=== PATIENT | female | born 1955 | race Caucasian/White ===

== ENCOUNTER → 2016-10-31 | Outpatient (CLI) | payer OTHER ==
[~2016-10-31] VITALS: Ht 167.6 cm; Wt 70.8 kg
[~2016-10-31] MED LIST: ATOR1TAB21 PO; LIDOCAINE 2% INJ 100 MG/5 ML SDV (FOR ANES.) As Ordered ONE; LISI-538 PO; MAGN30TA2 PO; METO100T PO; NS 1,000 ML IV SCH; PROPOFOL 200 MG/20 ML VIAL As Ordered ONE; VITA200028 PO
--- NOTE | 2016-10-31 09:36 | ROOR ---
Patient Name: Christiana Mejia Procedure Date: 10/31/2016 9:19 AM Date of : 1955 Age: 61 Room: [facility] Gender: Female Note Status: Finalized Procedure: Colonoscopy to Cecum Indications: High risk colon cancer surveillance: Personal history of colonic polyps Providers: Tiago Dinero MD Referring MD: PAOLA MCNEIL MD Requesting Provider: Medicines: Monitored Anesthesia Care Complications: No immediate complications. Procedure: Pre-Anesthesia Assessment: - The heart rate, respiratory rate, oxygen saturations, blood pressure, adequacy of pulmonary ventilation, and response to care were monitored throughout the procedure. The Colonoscope was introduced through the anus and advanced to the cecum, identified by appendiceal orifice and ileocecal valve. The colonoscopy was performed without difficulty. The patient tolerated the procedure well. The quality of the bowel preparation was excellent. Findings: The perianal and digital rectal examinations were normal. Non-bleeding internal hemorrhoids were found during retroflexion. The hemorrhoids were small and Grade I (internal hemorrhoids that do not prolapse). Scattered small-mouthed diverticula were found in the recto-sigmoid colon, sigmoid colon and descending colon. The exam was otherwise without abnormality on direct and retroflexion views. Impression: - Non-bleeding internal hemorrhoids. - Diverticulosis in the recto-sigmoid colon, in the sigmoid colon and in the descending colon. - The examination was otherwise normal on direct and retroflexion views. - No specimens collected. - The exam was otherwise normal to the cecum. Recommendation: - Patient has a contact number available for emergencies. The signs and symptoms of potential delayed complications were discussed with the patient. Return to normal activities tomorrow. Written discharge instructions were provided to the patient. - High fiber diet. - Continue present medications. - Repeat colonoscopy in 5 years for surveillance. - Return to referring physician. - The findings and recommendations were discussed with the patient's family. Tiago Dinero MD Tiago Dinero MD 10/31/2016 9:35:50 AM This report has been signed electronically. Number of Addenda: 0 Note Initiated On: 10/31/2016 9:19 AM Estimated Blood Loss: Estimated blood loss: none.
[2016-10-31 09:55] VITALS: BP 96/71
== END ==
LOC: M OPP 08:27
PROVIDERS: ATTEND Internal Medicine Gastroenterology
DX: Z12.11 Encounter for screening for malignant neoplasm of colon (principal); Z86.010 Personal history of colon polyps; K64.0 First degree hemorrhoids; K57.30 Diverticulosis of large intestine without perforation or abscess without bleeding; I10 Essential (primary) hypertension; K50.90 Crohn's disease, unspecified, without complications; E78.5 Hyperlipidemia, unspecified; Z90.2 Acquired absence of lung [part of]; F17.200 Nicotine dependence, unspecified, uncomplicated; Z79.899 Other long term (current) drug therapy

== ENCOUNTER 2018-06-11 07:23 | Day surgery (SDC) | payer OTHER ==
[~2018-06-11 07:23] MED LIST changes: +ACETAMINOPHEN 325 MG TAB PO; -ATOR1TAB21 PO; -LIDOCAINE 2% INJ 100 MG/5 ML SDV (FOR ANES.) As Ordered ONE; -LISI-538 PO; -MAGN30TA2 PO; -METO100T PO; +MIDAZOLAM INJ 2 MG/2 ML VIAL (J2250) As Ordered; -NS 1,000 ML IV SCH; +PHENYLEPHRINE HCL 10 % OPHTH. SOL 5ML OS; -PROPOFOL 200 MG/20 ML VIAL As Ordered ONE; -VITA200028 PO
[2018-06-11] MEDS: OFLOXACIN 0.3 % (OCUFLOX) OPTH SOL 5ML OS (08:03)
[2018-06-11] MEDS: LIDOCAINE 3.5 % 1ML OPHTH TOPICAL GEL OU (08:04)
[2018-06-11] MEDS: CYCLOPENTOLATE 2% OPHTH SOLN 2ML BTL OS (08:04)
[2018-06-11] MEDS: TROPICAMIDE 1% OPHTH SOLN 2ML OS (08:04)
[2018-06-11] MEDS: PHENYLEPHRINE 2.5% OPHTH SOL 2ML OS (08:04)
[2018-06-11] MEDS ORDERED: fentaNYL 100 MCG/2 ML INJECTION (J3010) As Ordered (09:19)
[2018-06-11] MEDS: TRIAMCINOLONE PRES FR 40 MG/ML 1ML(TRIESENCE)(OR EYE ONLY)(J3300 PER 1MG) As Ordered (09:22)
[2018-06-11] MEDS: BSS with VANC/TOB/EPI for EYE CASES IR (09:22)
[2018-06-11] MEDS: MOXIFLOXACIN IN BSS 0.25MG/0.25ML INTRACAMERAL INJ (OR EYE ONLY)(J2280) As Ordered (09:22)
[2018-06-11] MEDS: HEALON DUET (HEALON 10MG/ML 0.55ML & HEALON ENDOCOAT 30MG/ML 0.85ML) As Ordered (09:22)
[2018-06-11] MEDS: LIDOCAINE 1% SDV 5 ML VIAL As Ordered (09:22)
[2018-06-11] MEDS: POVIDONE-IODINE 5% OPHTH PREP SOL 30ML As Ordered (09:22)
[2018-06-11] MEDS ORDERED: TRIMETHOBENZAMIDE 300 MG CAP PO (10:00)
[2018-06-11] MEDS: AcetaZOLAMIDE 500 MG ER CAP PO (10:20)
== END 2018-06-11 10:25 | disposition home or self-care (01) ==
LOC: M SDC 07:23
DX: H26.9 Unspecified cataract (principal); I10 Essential (primary) hypertension; J44.9 Chronic obstructive pulmonary disease, unspecified; E78.5 Hyperlipidemia, unspecified; F17.210 Nicotine dependence, cigarettes, uncomplicated; Z79.899 Other long term (current) drug therapy
CPT/HCPCS: 66984

== ENCOUNTER 2018-06-18 10:35 | Day surgery (SDC) | payer OTHER ==
[~2018-06-18 10:35] MED LIST changes: +BSS with VANC/TOB/EPI for EYE CASES IR; -MIDAZOLAM INJ 2 MG/2 ML VIAL (J2250) As Ordered; +PHENYLEPHRINE HCL 10 % OPHTH. SOL 5ML OD; -PHENYLEPHRINE HCL 10 % OPHTH. SOL 5ML OS
[2018-06-18] MEDS: CYCLOPENTOLATE 2% OPHTH SOLN 2ML BTL OD (11:28)
[2018-06-18] MEDS: LIDOCAINE 3.5 % 1ML OPHTH TOPICAL GEL OU (11:28)
[2018-06-18] MEDS: TROPICAMIDE 1% OPHTH SOLN 2ML OD (11:29)
[2018-06-18] MEDS: OFLOXACIN 0.3 % (OCUFLOX) OPTH SOL 5ML OD (11:29)
[2018-06-18] MEDS: PHENYLEPHRINE 2.5% OPHTH SOL 2ML OD (11:29)
[2018-06-18] MEDS: LIDOCAINE 1% SDV 5 ML VIAL As Ordered (12:48)
[2018-06-18] MEDS: POVIDONE-IODINE 5% OPHTH PREP SOL 30ML As Ordered (12:48)
[2018-06-18] MEDS: TRIAMCINOLONE PRES FR 40 MG/ML 1ML(TRIESENCE)(OR EYE ONLY)(J3300 PER 1MG) As Ordered (12:50)
[2018-06-18] MEDS: MOXIFLOXACIN IN BSS 0.25MG/0.25ML INTRACAMERAL INJ (OR EYE ONLY)(J2280) As Ordered (12:50)
[2018-06-18] MEDS ORDERED: MIDAZOLAM INJ 2 MG/2 ML VIAL (J2250) As Ordered (12:54)
[2018-06-18] MEDS ORDERED: fentaNYL 100 MCG/2 ML INJECTION (J3010) As Ordered (12:54)
[2018-06-18] MEDS: HEALON DUET (HEALON 10MG/ML 0.55ML & HEALON ENDOCOAT 30MG/ML 0.85ML) As Ordered (12:56)
[2018-06-18] MEDS ORDERED: AcetaZOLAMIDE 500 MG ER CAP As Ordered (13:12)
[2018-06-18] MEDS ORDERED: TRIMETHOBENZAMIDE 300 MG CAP PO (13:15)
[2018-06-18] MEDS: AcetaZOLAMIDE 500 MG ER CAP PO (13:15)
== END 2018-06-18 13:50 | disposition home or self-care (01) ==
LOC: M SDC 10:35
DX: H26.9 Unspecified cataract (principal); I10 Essential (primary) hypertension; E78.5 Hyperlipidemia, unspecified; J45.909 Unspecified asthma, uncomplicated; Z79.899 Other long term (current) drug therapy; F17.210 Nicotine dependence, cigarettes, uncomplicated
CPT/HCPCS: 66984

== ENCOUNTER 2018-08-17 08:23 | Emergency (ER) | payer OTHER ==
[2018-08-17] MEDS: KETOROLAC 30 MG/ML VIAL (J1885) IV (08:54)
[2018-08-17 09:04] LABS: BASO % 0.3 % (0.0-1.0); EOS # 0.3 10^3/uL (0.0-0.50); HEMATOCRIT 38.8 % (36.0-47.0); HEMOGLOBIN 12.9 g/dl (12.0-15.5); IMMATURE GRANULOCYTE % 0.7 % (0-3.0); LYMPH # 2.6 10^3/uL (1.5-4.5); LYMPH % 18.3 % (24.0-44.0); MEAN CORPUSCULAR HEMOGLOBIN 31.8 pg (27.0-33.0); MEAN CORPUSCULAR HGB CONC 33.2 g/dl (32.0-36.5); MEAN CORPUSCULAR VOLUME 95.6 fl (80.0-96.0); MONO # 1.1 10^3/uL (0.0-0.8); MONO % 7.9 % (0.0-5.0); NEUTROPHILS # 9.9 10^3/uL (1.8-7.7); NEUTROPHILS % 70.8 % (36.0-66.0); PLATELET COUNT, AUTOMATED 320 10^3/uL (150-450); RED BLOOD COUNT 4.06 10^6/uL (4.00-5.40); RED CELL DISTRIBUTION WIDTH 13.2 % (11.5-14.5)
[2018-08-17 09:08] LABS: KETONE, URINE AUTO RFX NEGATIVE (NEGATIVE); MUCUS, URINE RFX SMALL (NEGATIVE); NITRITE, URINE AUTO RFX NEGATIVE (NEGATIVE); RBC, URINE AUTO RFX 1 /HPF (0-3); SPECIFIC GRAVITY UR AUTO RFX 1.014 (1.002-1.035); SQUAM EPITHELIAL CELL UR AURFX 2 /HPF (0-6); WBC, URINE AUTO RFX 5 /HPF (0-3)
[2018-08-17 09:13] LABS: LEUKOCYTE ESTERASE UR AUTO RFX 1+ (NEGATIVE)
[2018-08-17 09:32] LABS: ALBUMIN 3.2 GM/DL (3.2-5.2); ALBUMIN/GLOBULIN RATIO 0.86 (1.00-1.93); ALKALINE PHOSPHATASE 104 U/L (45-117); ALT/SGPT 16 U/L (12-78); ANION GAP 8 MEQ/L (8-16); AST/SGOT 14 U/L (7-37); BILIRUBIN,DIRECT 0.1 MG/DL (0.0-0.2); BILIRUBIN,TOTAL 0.5 MG/DL (0.2-1.0); BLOOD UREA NITROGEN 22 MG/DL (7-18); CALCIUM LEVEL 8.7 MG/DL (8.8-10.2); CARBON DIOXIDE LEVEL 27 MEQ/L (21-32); CHLORIDE LEVEL 104 MEQ/L (98-107); CREATININE FOR GFR 1.11 MG/DL (0.55-1.30); GLUCOSE, FASTING 100 MG/DL (70-100); LIPASE 188 U/L (73-393); POTASSIUM SERUM 4.4 MEQ/L (3.5-5.1); SODIUM LEVEL 139 MEQ/L (136-145); TOTAL PROTEIN 6.9 GM/DL (6.4-8.2)
[2018-08-17] MEDS ORDERED: ISOVUE-370 76% 100ML VIAL (Q9967) As Ordered (09:46)
[2018-08-17] MEDS: cefTRIAXone SOD 1 GM in D5W MINI-BAG PLUS 50 ML IV (10:38)
== END 2018-08-17 11:19 | disposition home or self-care (01) ==
LOC: M ED 08:23
DX: K52.9 Noninfective gastroenteritis and colitis, unspecified (principal); I10 Essential (primary) hypertension; E78.5 Hyperlipidemia, unspecified; F17.210 Nicotine dependence, cigarettes, uncomplicated; Z79.899 Other long term (current) drug therapy; Z88.8 Allergy status to other drugs, medicaments and biological substances
CPT/HCPCS: Q9967

== ENCOUNTER 2018-08-18 07:46 | Inpatient (IN) | payer OTHER ==
[~2018-08-18] VITALS: Ht 167.6 cm; Wt 63.5 kg
[~2018-08-18 07:46] MED LIST changes: -ACETAMINOPHEN 325 MG TAB PO; +AMLO5TAB6 PO; +ATOR1TAB21 PO; +AUGM875T28 PO; -BSS with VANC/TOB/EPI for EYE CASES IR; +LISI-538 PO; +MAGN30TA2 PO; +MAGN64TASA PO; +METO100T5 PO; -PHENYLEPHRINE HCL 10 % OPHTH. SOL 5ML OD; +VITA200028 PO
[2018-08-18] MEDS ORDERED: NS 1,000 ML IV ONE (08:30)
[2018-08-18] MEDS ORDERED: MORPHINE 4 MG/ML 1ML VIAL/SYRINGE (J2270) IV ONE ×2 (08:45→13:45)
[2018-08-18 09:02] LABS: BASO # 0.1 10^3/uL (0.0-0.2); BASO % 0.4 % (0.0-1.0); EOS # 0.3 10^3/uL (0.0-0.50); EOS % 2.1 % (0.0-3.0); HEMATOCRIT 36.9 % (36.0-47.0); HEMOGLOBIN 12.4 g/dl (12.0-15.5); LYMPH # 1.8 10^3/uL (1.5-4.5); LYMPH % 12.4 % (24.0-44.0); MEAN CORPUSCULAR HEMOGLOBIN 31.6 pg (27.0-33.0); MEAN CORPUSCULAR HGB CONC 33.6 g/dl (32.0-36.5); MEAN CORPUSCULAR VOLUME 94.1 fl (80.0-96.0); MONO # 1.1 10^3/uL (0.0-0.8); MONO % 7.6 % (0.0-5.0); NEUTROPHILS # 10.9 10^3/uL (1.8-7.7); NEUTROPHILS % 76.9 % (36.0-66.0); PLATELET COUNT, AUTOMATED 309 10^3/uL (150-450); RED BLOOD COUNT 3.92 10^6/uL (4.00-5.40); WHITE BLOOD COUNT 14.2 10^3/uL (4.0-10.0)
[2018-08-18 09:12] LABS: ALBUMIN 3.2 GM/DL (3.2-5.2); BILIRUBIN,DIRECT 0.1 MG/DL (0.0-0.2); BILIRUBIN,TOTAL 0.5 MG/DL (0.2-1.0); CALCIUM LEVEL 9.4 MG/DL (8.8-10.2); CREATININE FOR GFR 1.1 MG/DL (0.55-1.30); GLOMERULAR FILTRATION RATE 53.6 (>45); POTASSIUM SERUM 4.4 MEQ/L (3.5-5.1); TOTAL PROTEIN 7.5 GM/DL (6.4-8.2)
[2018-08-18] MEDS ORDERED: NS 1,000 ML IV SCH (10:05)
[2018-08-18] MEDS ORDERED: PIPERACILLIN/TAZOBACTAM SOD 4.5 GM in D5W MINI-BAG PLUS 50 ML IV ONE (10:15)
[2018-08-18] MEDS: GASTROGRAFIN SOLUTION 30ML PO SCH ×2 (11:45→12:15)
[2018-08-18] MEDS ORDERED: METOCLOPRAMIDE INJ 10MG/2ML VIAL (J2765) IV PRN (14:15)
[2018-08-18] MEDS ORDERED: ONDANSETRON 4MG/2ML VIAL (J2405) IV PRN ×2 (14:15→21:45)
[2018-08-18] MEDS ORDERED: MORPHINE 4 MG/ML 1ML VIAL/SYRINGE (J2270) IV PRN (14:15)
--- NOTE | 2018-08-18 14:21 | REP ---
CT ABDOMEN AND PELVIS WITHOUT IV BUT WITH ORAL CONTRAST: HISTORY: Right lower quadrant pain. Rule out appendicitis. Comparison CT study is from the previous day done with IV contrast. CT FINDINGS: A phlegmonous reaction persists at the tip of the cecum with mural thickening, pericolonic edema. There is mural thickening in the anteriorly adjacent distal ileum as well. There is a small air collection with an adjacent calcification, consistent with a small appendiceal abscess centrally located in this phlegmonous process. The findings are quite similar to yesterday's CT study. There is diverticulosis of the cecum as well. There is no evidence of free intraperitoneal air or other abnormal fluid collection. There is extensive left colonic diverticulosis without CT evidence of diverticulitis. No other change from the previous day's CT study. IMPRESSION: Phlegmonous reaction persists in the right lower quadrant enveloping the tip of the cecum, the appendix, and in the adjacent terminal ileum. Acute appendicitis with abscess suspected. Diverticulitis of the cecum is a possibility as well. Small air collection adjacent to the tip of the cecum may represent a small abscess or air in the base of the inflamed appendix. No drainable abscess seen. No evidence of free air or other fluid collection. Electronically Signed by Ean Pizano MD 08/18/2018 08:07 P
[2018-08-18 15:30] VITALS: BP 117/74
[2018-08-18] MEDS: LR 1,000 ML IV SCH ×2 (15:43→23:50)
[2018-08-18] MEDS: PANTOPRAZOLE 40MG INJ (PROTONIX) (C9113) IV SCH (15:43)
[2018-08-18] MEDS: PIPERACILLIN/TAZOBACTAM SOD 3.375 GM in D5W MINI-BAG PLUS 50 ML IV SCH ×2 (16:45→23:49)
[2018-08-18] MEDS ORDERED: BUPIVACAINE HCL 0.25% 30 ML VIAL As Ordered ONE (17:16)
[2018-08-18] MEDS ORDERED: METOCLOPRAMIDE INJ 10MG/2ML VIAL (J2765) As Ordered ONE (17:29)
[2018-08-18] MEDS ORDERED: LIDOCAINE 2% INJ 100 MG/5 ML SDV (FOR ANES.) As Ordered ONE (17:29)
[2018-08-18] MEDS ORDERED: MIDAZOLAM INJ 2 MG/2 ML VIAL (J2250) As Ordered ONE (17:29)
[2018-08-18] MEDS ORDERED: PROPOFOL 200 MG/20 ML VIAL As Ordered ONE (17:29)
[2018-08-18] MEDS ORDERED: fentaNYL 100 MCG/2 ML INJECTION (J3010) As Ordered ONE ×4 (17:29→19:31)
[2018-08-18] MEDS ORDERED: ROCURONIUM BROMIDE 50 MG/5 ML VIAL As Ordered ONE ×2 (17:29→19:30)
[2018-08-18] MEDS ORDERED: PHENYLephrine HCL 500 MCG/5 ML (100MCG/ML) SYRINGE (J2370) As Ordered ONE (18:05)
[2018-08-18] MEDS ORDERED: ESMOLOL INJ 100MG/10ML VIAL As Ordered ONE (19:19)
[2018-08-18] MEDS ORDERED: SUGAMMADEX SODIUM 500 MG/5 ML VIAL (BRIDION) As Ordered ONE (19:34)
[2018-08-18] MEDS ORDERED: ONDANSETRON 4MG/2ML VIAL (J2405) As Ordered ONE ×2 (19:35→21:53)
[2018-08-18] MEDS ORDERED: HYDROmorphone HCL 2 MG/ML 1ML VIAL (J1170) As Ordered ONE (20:17)
[2018-08-18] MEDS ORDERED: MORPHINE 10 MG/ML 1ML VIAL (J2270) IV PRN (21:45)
[2018-08-18] MEDS ORDERED: fentaNYL 100 MCG/2 ML INJECTION (J3010) IV PRN (21:45)
[2018-08-18] MEDS ORDERED: LR 1,000 ML IV SCH (21:45)
[2018-08-18] MEDS ORDERED: KETOROLAC 30 MG/ML VIAL (J1885) As Ordered ONE (21:54)
[2018-08-18] MEDS: KETOROLAC 30 MG/ML VIAL (J1885) IV PRN (21:57)
[2018-08-18 23:00] VITALS: BP 119/59
[2018-08-18 23:30] VITALS: BP 125/84
[2018-08-19] VITALS (9 sets, daily range): BP systolic 108–140; BP diastolic 62–88
[2018-08-19] MEDS: KETOROLAC 30 MG/ML VIAL (J1885) IV PRN ×2 (04:15→12:32)
[2018-08-19] MEDS: PIPERACILLIN/TAZOBACTAM SOD 3.375 GM in D5W MINI-BAG PLUS 50 ML IV SCH ×4 (05:50→23:39)
[2018-08-19 07:28] LABS: BASO % 0.1 % (0.0-1.0); HEMATOCRIT 31.8 % (36.0-47.0); HEMOGLOBIN 10.7 g/dl (12.0-15.5); LYMPH # 0.6 10^3/uL (1.5-4.5); LYMPH % 4.1 % (24.0-44.0); MEAN CORPUSCULAR HEMOGLOBIN 31.6 pg (27.0-33.0); MEAN CORPUSCULAR HGB CONC 33.6 g/dl (32.0-36.5); MEAN CORPUSCULAR VOLUME 93.8 fl (80.0-96.0); MONO # 0.7 10^3/uL (0.0-0.8); MONO % 4.8 % (0.0-5.0); NEUTROPHILS # 12.8 10^3/uL (1.8-7.7); NEUTROPHILS % 90.7 % (36.0-66.0); PLATELET COUNT, AUTOMATED 281 10^3/uL (150-450); RED BLOOD COUNT 3.39 10^6/uL (4.00-5.40); WHITE BLOOD COUNT 14.1 10^3/uL (4.0-10.0)
[2018-08-19 07:51] LABS: CALCIUM LEVEL 8.5 MG/DL (8.8-10.2); CREATININE FOR GFR 1.03 MG/DL (0.55-1.30); GLOMERULAR FILTRATION RATE 57.8 (>45); POTASSIUM SERUM 4.1 MEQ/L (3.5-5.1)
[2018-08-19] MEDS: PANTOPRAZOLE 40MG INJ (PROTONIX) (C9113) IV SCH (08:04)
[2018-08-19] MEDS: MORPHINE 4 MG/ML 1ML VIAL/SYRINGE (J2270) IV PRN ×5 (10:54→21:35)
[2018-08-19] MEDS: LR 1,000 ML IV SCH (10:55)
[2018-08-19] MEDS ORDERED: ACETAMINOPHEN TAB 650MG DOSE (2X325MG) PO PRN (16:45)
[2018-08-19] MEDS: ATORVASTATIN 20 MG TAB PO SCH (17:26)
[2018-08-19] MEDS: NORCO, ANEXSIA 5/325MG TABLET (HYDROcodone/ACETAMINOPHEN) PO PRN (17:27)
[2018-08-19] MEDS: MAGNESIUM CHLORIDE 64 MG TABCR (SLO MAG) PO SCH (18:40)
[2018-08-19] MEDS: METOPROLOL TARTRATE 100 MG TAB PO SCH (21:36)
[2018-08-20] VITALS (7 sets, daily range): BP systolic 107–133; BP diastolic 65–78
[2018-08-20] MEDS: NORCO, ANEXSIA 5/325MG TABLET (HYDROcodone/ACETAMINOPHEN) PO PRN ×5 (02:06→21:30)
[2018-08-20] MEDS: PIPERACILLIN/TAZOBACTAM SOD 3.375 GM in D5W MINI-BAG PLUS 50 ML IV SCH ×4 (05:45→23:53)
[2018-08-20 06:58] LABS: BASO % 0.2 % (0.0-1.0); EOS % 0.4 % (0.0-3.0); HEMATOCRIT 27.8 % (36.0-47.0); HEMOGLOBIN 9.1 g/dl (12.0-15.5); LYMPH # 1.5 10^3/uL (1.5-4.5); LYMPH % 14.7 % (24.0-44.0); MEAN CORPUSCULAR HEMOGLOBIN 31.3 pg (27.0-33.0); MEAN CORPUSCULAR HGB CONC 32.7 g/dl (32.0-36.5); MEAN CORPUSCULAR VOLUME 95.5 fl (80.0-96.0); MONO # 0.6 10^3/uL (0.0-0.8); MONO % 5.6 % (0.0-5.0); NEUTROPHILS # 7.8 10^3/uL (1.8-7.7); NEUTROPHILS % 78.6 % (36.0-66.0); PLATELET COUNT, AUTOMATED 264 10^3/uL (150-450); RED BLOOD COUNT 2.91 10^6/uL (4.00-5.40); WHITE BLOOD COUNT 9.9 10^3/uL (4.0-10.0)
[2018-08-20] MEDS: ATORVASTATIN 20 MG TAB PO SCH (08:55)
[2018-08-20] MEDS: METOPROLOL TARTRATE 100 MG TAB PO SCH ×2 (08:55→21:29)
[2018-08-20] MEDS: MAGNESIUM CHLORIDE 64 MG TABCR (SLO MAG) PO SCH (08:55)
--- NOTE | 2018-08-20 13:48 | RO ---
DATE OF PROCEDURE: 08/18/2018 PREOPERATIVE DIAGNOSIS: Appendicitis with possible abscess. POSTOPERATIVE DIAGNOSIS: Acute appendicitis with abscess and extensive inflammation and scarring. PROCEDURE PERFORMED: 1. Laparoscopic appendectomy with portion of cecum. 2. Laparotomy with resection of terminal ileum and cecum with ileocolonic anastomosis. SURGEON: Dr. Diallo ANESTHESIA: General. INDICATIONS FOR THE PROCEDURE: Patient is a 63-year-old woman who reported about a week or so of having some intermittent crampy pain and feeling mildly unwell. On the morning of 08/17/2018, she felt some right lower quadrant pain and presented to the emergency department for evaluation. A CT scan showed what was described as some phlegmonous changes at the medial aspect and tip of the cecum, worrisome for appendicitis. She was started on oral antibiotics and discharged home but returned to the emergency department on 08/18/2018 complaining of persistent if not increased pain. A repeat CT scan after oral contrast confirmed a markedly inflamed mass of tissue around the cecum and anticipated area of the appendix. There was a suggestion of a possible abscess. She is now for laparoscopy and possible laparotomy for presumed appendicitis with possible abscess. OPERATIVE PROCEDURE: The patient was brought to the operating room and placed on the operating table in a supine position. Thromboembolic deterrent (GERALD) and sequential were utilized. The patient was placed under general endotracheal anesthesia. The abdomen was prepped and draped in a sterile fashion. 0.25% Marcaine was infiltrated ate each of the trocar sites as needed. The initial entry into the abdomen was in the left lower quadrant. 0.25% Marcaine was infiltrated and a short transverse incision was made. A Veress needle was inserted through the abdominal wall and after a positive hanging drop test the abdomen was insufflated with carbon dioxide gas. A 5 mm port was placed over 5 mm scope and this was advanced through the abdominal wall without difficulty. The laparoscope was inserted and initial examination showed some omentum adherent into the right lower quadrant near the pelvic brim. Visualized portions of the liver and gallbladder, stomach and small and large bowel appeared normal otherwise. There was no significant free fluid identified. A 12 mm trocar was placed just above the umbilicus along the midline. A second 5 mm trocar was placed in the left lower quadrant further inferiorly. Graspers were inserted. The omentum was placed on traction and some inflammatory attachments to the lateral abdominal wall were broken apart bluntly and the omentum was elevated to the upper abdomen. There appeared to be some marked inflammation in the area of the appendix and cecum. The terminal ileum coursed across and adjacent to this area just below the area of the cecum. Graspers were used to try to develop tissue planes. Some lateral attachments of the upper cecum and proximal ascending colon were divided using the Harmonic scalpel. Likewise, some attachments of the terminal ileum laterally were also divided. In the course of trying to develop a plane of tissue lateral to the terminal ileum an abscess was entered with release of some thick greenish pus. This was controlled using the suction jalousie installer and was not released widely into the abdomen. With further probing using the graspers and then the Harmonic scalpel to open up this area, a second abscess slightly more inferior was identified. These tissues were opened and some tissue planes identified. It was clear that the markedly inflamed appendix was coiled just inferior to the cecum. This area was markedly indurated and there was significant fusion between portions of the appendix and the cecum and the terminal ileum. The appendix was freed by some circumferential dissection and elevated. A plane was then developed following the wall of the terminal ileum working from inferiorly superiorly towards the cecum. In the course of dissection, a small opening was created in the lateral inferior aspect of the cecum. With further dissection primarily using the Harmonic scalpel, the area of the base of the appendix and the tip of the cecum were better identified. An additional grasper was needed for retraction and so a fourth 5 mL trocar was placed in the right upper quadrant. An [place] stapler 60 mm in length with a green load was then placed across the cecum and used to begin the division of the cecum freeing the appendix. The staple line was carried across the cecum to close the colotomy that had been created. This tissue was then all placed within an Endopouch. The right lower quadrant was irrigated. The pelvis was also irrigated and did not appear to have any significant contamination. A 19-Grenadian Igor drain was inserted and directed out through the left lower quadrant drain. This was passed across the pelvis and then up lateral to the terminal ileum and the area of the appendiceal abscess. The abdomen was then deflated and the trocars were removed. The incision in the supraumbilical area was extended and because of the mass of tissue within the specimen pouch it was necessary to extend this to perhaps 5-6 cm in order to be able to deliver the appendix. Once this had been delivered, the fascia was closed with interrupted simple sutures of #0 Vicryl. At this point, I took the time to open the specimen pouch and inspect the specimen. The staple line across the cecum was excised to open the cecum to identify more fully the tissue that had been resected. The specimen clearly included the origin of the appendix with the mass of the inflamed appendix attached. However, also noted within the specimen was the ileocecal valve, indicating that there must be a transection of the terminal ileum in the area adjacent to the cecum. At this point, the specimen was passed off as the appendix with a portion of cecum. In order to inspect the tissues and confirm intestinal continuity, a short midline incision was made. Initially the sutures were removed from the supraumbilical incision and this was then carried inferiorly around the right side of the umbilicus an additional several centimeters inferiorly along the midline. A Navi retractor was placed. Handheld retractors were placed as well. The lateral attachments of the ascending colon and the terminal ileum were then further divided and these structures were elevated into the wound. The right ureter was identified and was clearly intact. The remaining tissues of the terminal ileum and the inflammatory tissues adjacent to the remaining portions of the cecum still made identification of the structures difficult. I therefore transected the terminal ileum with a linear cutter 55 stapler back to healthy appearing tissue that was not indurated. This required resection of probably 6 cm of the terminal ileum. Likewise, the colon was transected approximately at the junction of the cecum and ascending colon with the linear cutter 55 stapler. These tissues were then excised dividing the mesentery with the Harmonic scalpel. This portion of tissue was sent as terminal ileum and cecum. A stapled anastomosis was then performed using a linear cutter 55 and a [id number]. Several reinforcing sutures of #3-0 Vicryl were placed. The mesenteric defect was closed with a running suture of #1-0 chromic. This appeared to give a good healthy anastomosis with removal of all of the adjacent indurated and inflamed tissues. The abdomen was then copiously irrigated with warm saline. The 19-Grenadian Igor drain was removed from the left lower quadrant and placed instead through the right upper quadrant trocar site. This was directed down the right paracolic gutter, across the area of her previous appendiceal abscess, down to the primary upper aspect of the pelvis. The irrigation was then removed from the abdomen as thoroughly as possible. The peritoneum in the lower portion of the midline wound was closed with a running #1 Vicryl. The fascia was then closed with interrupted simple sutures of #1 Vicryl. The drain was sutured to the skin with a #2-0 silk and the site was covered with a CHG OpSite dressing. The other incisions were all closed with skin alisa. Sterile dressings were applied. The patient tolerated the procedure well without apparent complication. She was awakened in the operating room, extubated and moved to the recovery room in stable condition. SHASHI
[2018-08-21] VITALS: BP 134/70
[2018-08-21 04:00] VITALS: BP 126/61
--- NOTE | 2018-08-21 04:41 | IPN ---
DATE: 08/19/2018 HISTORY OF PRESENT ILLNESS: The patient was admitted on August 18, 2018 with right lower quadrant pain and a CT scan consistent with appendicitis with possible abscess. At surgery she was found to have two abscesses and marked induration of the appendix and surrounding tissues. The appendix was removed with a portion of the cecum but the examination of the specimen suggested that there was interruption of continuity of the ileum so a ileocecal resection and anastomosis was performed with healthy tissue. She has initially done well after surgery. Vital signs show that she has remained afebrile since her surgery on the evening of August 18, 2018. Her pulse had gone up into the low 100s postoperatively but has come down into the 80s and 90s. Her blood pressure is good. Intake and output shows that on 08/18/2018 she had a total of 3000 in with a urine output recorded of 250 and 40 mL from her Igor drain. PHYSICAL EXAMINATION: Physical exam shows that the patient is awake and alert. She appears fairly comfortable. She is sitting up in bed. SKIN: Is warm and dry. HEART: Exam shows a regular rate and rhythm. ABDOMEN: The abdomen is flat and her dressing is dry. She does have a few bowel sounds auscultated. Her drain has a small amount of serosanguineous fluid in the tubing. LABORATORIES: Laboratory studies show a white count of 14 with a hemoglobin of 11, hematocrit of 32 and a platelet count of 281,000. Differential count shows 91% neutrophils and 4% lymphocytes. Chemistry profile shows normal electrolytes, BUN and creatinine and a glucose of 168. IMPRESSION: The patient is doing well now approximately 12 hours out from her surgical procedure. PLAN: The patient will be started on some clear liquids. She is encouraged to be up out of bed. We will monitor her drain for now and continue her piperacillin tazobactam for antibiotic coverage. SHASHI
--- NOTE | 2018-08-21 04:48 | IPN ---
DATE: 08/20/2018 HISTORY OF PRESENT ILLNESS: The patient is now postoperative day #2 from surgery for acute appendicitis with abscess and marked inflammation involving the cecum and terminal ileum. Ultimately she underwent resection of her terminal ileum and cecum with the inflamed appendiceal mass. She has done well and tolerated clear liquids quite well yesterday after they were started. She denies any nausea or vomiting and has had several bowel movements. She did have what appeared to be some blood in a bowel movement last night and again early this morning. Vital signs show that she has been afebrile over the past 24 hours. Her pulse is in the 70s and 80s. Blood pressure is good. Intake and output shows that yesterday she had 3400 in with 2200 of that being oral intake. Her urine output was 2700 with 100 mL of drainage from her Igor drain. PHYSICAL EXAMINATION: The patient is alert and appears quite comfortable sitting up in bed. She denies any nausea. HEART: Exam shows a regular rhythm. LUNGS: Lungs are clear. ABDOMEN: The abdomen shows active bowel sounds. Her dressing is dry and her drain shows a small amount of serosanguineous fluid. LABORATORY FINDINGS: The patient had a complete blood count (CBC) with a differential this morning showing a white count of 10, hemoglobin of 9 and a hematocrit of 28% with 264,000 platelets. Her differential count shows 79% neutrophils and 15% lymphocytes. IMPRESSION: The patient appears to be doing well now postoperative day #2 from her laparoscopy and laparotomy with resection of her markedly inflamed appendix with the terminal ileum and cecum. She has noted some blood in her stool and I did observe a sample which did show some significant blood but that was from much earlier in the day. She has not had any lightheadedness or dizziness. Her hematocrit is down a bit but her urine output remains brisk and her blood pressure and pulse have been fine. PLAN: We will keep an eye on her bowel movements and monitor for evidence of ongoing blood loss. I will repeat her laboratories tomorrow with a chemistry profile and a CBC with a differential. She was advanced to regular food today as she had tolerated the clear liquids so well. We will monitor her drain output until this is draining minimally and then remove it. She will remain on the piperacillin tazobactam for now. ADAMD
[2018-08-21] MEDS: PIPERACILLIN/TAZOBACTAM SOD 3.375 GM in D5W MINI-BAG PLUS 50 ML IV SCH ×4 (04:54→22:38)
[2018-08-21] MEDS: NORCO, ANEXSIA 5/325MG TABLET (HYDROcodone/ACETAMINOPHEN) PO PRN ×5 (04:55→23:30)
[2018-08-21 06:49] LABS: HEMATOCRIT 29.8 % (36.0-47.0); HEMOGLOBIN 9.8 g/dl (12.0-15.5); LYMPH % 18.8 % (24.0-44.0); MEAN CORPUSCULAR HEMOGLOBIN 31.6 pg (27.0-33.0); MEAN CORPUSCULAR HGB CONC 32.9 g/dl (32.0-36.5); MEAN CORPUSCULAR VOLUME 96.1 fl (80.0-96.0); PLATELET COUNT, AUTOMATED 321 10^3/uL (150-450); WHITE BLOOD COUNT 8.8 10^3/uL (4.0-10.0)
[2018-08-21 06:50] LABS: BASO % 0.2 % (0.0-1.0); EOS # 0.1 10^3/uL (0.0-0.50); EOS % 1.6 % (0.0-3.0); LYMPH # 1.7 10^3/uL (1.5-4.5); MONO # 0.5 10^3/uL (0.0-0.8); MONO % 5.1 % (0.0-5.0); NEUTROPHILS # 6.5 10^3/uL (1.8-7.7)
[2018-08-21 07:19] LABS: ALBUMIN 2.3 GM/DL (3.2-5.2); BILIRUBIN,TOTAL 0.3 MG/DL (0.2-1.0); CALCIUM LEVEL 8.8 MG/DL (8.8-10.2); CREATININE FOR GFR 1.11 MG/DL (0.55-1.30); POTASSIUM SERUM 3.4 MEQ/L (3.5-5.1); TOTAL PROTEIN 6.6 GM/DL (6.4-8.2)
[2018-08-21 08:00] VITALS: BP 141/86
[2018-08-21] MEDS: MAGNESIUM CHLORIDE 64 MG TABCR (SLO MAG) PO SCH (08:47)
[2018-08-21] MEDS: ATORVASTATIN 20 MG TAB PO SCH (08:47)
[2018-08-21] MEDS: METOPROLOL TARTRATE 100 MG TAB PO SCH ×2 (08:47→20:42)
[2018-08-21 12:00] VITALS: BP 118/73
[2018-08-21] MEDS: amLODIPine 5 MG TAB PO SCH (12:25)
[2018-08-21 16:00] VITALS: BP 115/66
--- NOTE | 2018-08-21 16:07 | IPN ---
DATE: 08/21/2018 HISTORY: The patient is now postoperative day #3 from her laparoscopic converted to open appendectomy and ileocecal resection for appendicitis with abscess and severe inflammation. She has done very well over the last day. She was having some bleeding with bowel movements yesterday, and this has stopped. She has little discomfort. Her drain remains in place. Vital signs show that she has been afebrile over the past 24 hours. Her pulse is in the 70s now with a blood pressure that is occasionally slightly elevated into the 140s. Intake and output: Yesterday she had 1130 recorded in with 3450 recorded out. Of that, 3000 was urine with 400 of stool in 53 mL in her drain. She had 40 mL in her drain this morning, and her urine output remains brisk. PHYSICAL EXAMINATION: The patient is alert and appears comfortable. Heart exam shows a regular rhythm. The abdomen is soft and with active bowel sounds. Her drain site is clean with a small amount of serous fluid in the bottle. Laboratory studies show a white count of 9, hemoglobin 10, hematocrit of 30, and a platelet count of 321,000. Her differential count shows 74% neutrophils, 19% lymphocytes, and 5 monocytes. Chemistry profile shows her potassium is slightly low at 3.4, her albumin is also slightly low at 2.3, and her other chemistry tests are normal. IMPRESSION: The patient is doing well now 3 days postoperative from her resection for appendicitis with abscess. PLAN: I will leave her drain in place one more day and continue her also on intravenous (IV) Zosyn one more day. If she is doing well in the morning we will remove her drain and send her home to continue some oral antibiotics. SHASHI
[2018-08-21 20:00] VITALS: BP 112/71
[2018-08-22 00:45] VITALS: BP 122/73
[2018-08-22 04:45] VITALS: BP 141/78
[2018-08-22] MEDS: PIPERACILLIN/TAZOBACTAM SOD 3.375 GM in D5W MINI-BAG PLUS 50 ML IV SCH ×2 (04:55→11:34)
[2018-08-22] MEDS: NORCO, ANEXSIA 5/325MG TABLET (HYDROcodone/ACETAMINOPHEN) PO PRN ×3 (04:55→13:30)
[2018-08-22 06:45] LABS: BASO % 0.4 % (0.0-1.0); EOS # 0.3 10^3/uL (0.0-0.50); EOS % 4.3 % (0.0-3.0); HEMOGLOBIN 9.7 g/dl (12.0-15.5); LYMPH # 1.7 10^3/uL (1.5-4.5); LYMPH % 23.2 % (24.0-44.0); MEAN CORPUSCULAR HEMOGLOBIN 31.9 pg (27.0-33.0); MEAN CORPUSCULAR HGB CONC 33.4 g/dl (32.0-36.5); MEAN CORPUSCULAR VOLUME 95.4 fl (80.0-96.0); MONO # 0.5 10^3/uL (0.0-0.8); MONO % 6.8 % (0.0-5.0); NEUTROPHILS # 4.9 10^3/uL (1.8-7.7); NEUTROPHILS % 64.8 % (36.0-66.0); PLATELET COUNT, AUTOMATED 328 10^3/uL (150-450); RED BLOOD COUNT 3.04 10^6/uL (4.00-5.40); WHITE BLOOD COUNT 7.5 10^3/uL (4.0-10.0)
[2018-08-22 07:30] VITALS: BP 96/73
[2018-08-22] MEDS: MAGNESIUM CHLORIDE 64 MG TABCR (SLO MAG) PO SCH (08:28)
[2018-08-22] MEDS: METOPROLOL TARTRATE 100 MG TAB PO SCH (08:28)
[2018-08-22] MEDS: ATORVASTATIN 20 MG TAB PO SCH (08:29)
[2018-08-22 08:31] VITALS: BP 96/73
[2018-08-22] MEDS: amLODIPine 5 MG TAB PO SCH (08:31)
[2018-08-22 12:00] VITALS: BP 132/76
[2018-08-22] MEDS ORDERED: NORCOTAB PO (14:35)
--- NOTE | 2018-08-23 12:02 | IPN ---
DATE: 08/23/2018 HISTORY: The patient is now 4 days postop from her laparoscopic converted to open appendectomy and ileocecal resection for appendicitis with abscess. The patient has done very well with her antibiotics. She is tolerating a regular diet and has an excellent urine output. She still has her drain in place. Vital signs show that she has been afebrile over the past 24 hours. Her pulse is in the 70s and 80s and her blood pressure is good. Intake and output shows that yesterday she had 2800 in with 3800 out. 60 mL was recorded from her drain yesterday and she had eight bowel movements recorded. PHYSICAL EXAMINATION: The patient is alert, oriented and appears quite comfortable. Heart exam shows a regular rate and rhythm and the lungs are clear. The abdomen is flat and soft. Her incisions are clean with alisa in place. Her drain site is clean and she has a minimal amount of primarily serous fluid in her drain bulb. Laboratory studies show white count of 8 with a hemoglobin of 10, hematocrit of 29% and a platelet count of 328,000. Differential count shows 65%, neutrophils, 23% lymphocytes and 7% monocytes. Chemistry profile was not repeated today. IMPRESSION: The patient is doing very well now 4 days postop from her ileocecal resection for appendicitis with abscess. PLAN: The patient will be discharged home today. I removed her drain, which she tolerated well and instructed her in care of the drain site. She can shower starting tomorrow. She can take a diet as tolerated. She was advised against any strenuous physical activity. She was instructed to followup in my office on 08/27/2018 at 9:30 in the morning. She is to resume taking the Augmentin 875/125 tablets that she had been prescribed the day before her admission. She is to take one twice a day for 5 days starting tonight. SHASHI
--- NOTE | 2018-09-06 08:41 | DSES ---
DATE OF ADMISSION: 08/18/2018 DATE OF DISCHARGE: 08/22/2018 ADMITTING DIAGNOSIS: Appendicitis with possible early abscess. HISTORY OF PRESENT ILLNESS: The patient is a 63-year-old woman who had been seen in the emergency department on August 17, 2018 with some right lower quadrant pain. She reported some cramping for about a week with some pain starting on the morning of August 12, 2018. A CT scan was done, which showed a phlegmon in the right lower quadrant and the possibility of appendicitis was raised. She was discharged home on antibiotics. She returned to the emergency department on the 18 of August complaining of worsening pain. A repeat CT scan with oral contrast showed inflammatory changes medial to the cecum in the area that would be expected to be the location of the appendix. She was felt to have appendicitis with a possible early abscess and was scheduled for laparoscopy with appendectomy. HOSPITAL COURSE: The patient was brought to the operating room where she underwent a laparoscopic appendectomy with resection of a portion of the cecum. There was an inflammatory mass arising from the appendix and involving a portion of the cecum and adjacent to the terminal ileum. After the initial resection, there appeared to be enough cecum removed that intestinal continuity may have been sacrificed so the procedure was modified with a laparotomy with resection of the remaining inflamed portions of the terminal ileum and cecum with an ileocolonic anastomosis. A drain was left in the operative area postop. She had been found to have an abscess in the area, Postop, she was continued on intravenous antibiotics. She had her diet advanced from clear liquids gradually to regular food. She did have some rectal bleeding early in her postop course felt to be related to her surgery and the anastomosis. This stopped by postoperative day #3. Her white blood cell count returned toward normal. She had little discomfort. With continued progress, she reached discharge on August 22, 2018. FINAL DIAGNOSES: 1. Acute appendicitis with abscess. 2. Hypertension. 3. Hypercholesterolemia. 4. Asthma. 5. Chronic obstructive pulmonary disease. PROCEDURE PERFORMED: Laparoscopic appendectomy with partial cecectomy and this was extended to a laparotomy with resection of the terminal ileum and cecum with ileocolonic anastomosis. DISPOSITION: The patient was discharged home on August 22, 2018. She was advised against any strenuous activity or lifting greater than 25 pounds. She could take a regular diet. She could shower as desired. She was to continue to treat her drain site daily until it had healed. She was provided a prescription for Melvin to take on an as-needed basis for pain. She was to continue the Augmentin that had been started at her prior emergency department visit. She was to follow up in the office on August 27, 2018 at 09:30.
== END 2018-08-22 15:30 | disposition home or self-care (01) | DRG 221 ==
LOC: M ED 07:46 → M SDC 14:01 → M PED 15:30 → M SDC 21:45 → M PED 21:46
PROVIDERS: ADMIT Surgery; ATTEND Surgery
PROC: 0DBB0ZZ Excision of Ileum, Open Approach (ICD-10-PCS; 2018-08-18)
PROC: 0DBH0ZZ Excision of Cecum, Open Approach (ICD-10-PCS; 2018-08-18)
PROC: 0DTJ4ZZ Resection of Appendix, Percutaneous Endoscopic Approach (ICD-10-PCS; principal; 2018-08-18 17:00)
DX: K35.33 Acute appendicitis with perforation, localized peritonitis, and gangrene, with abscess (principal)

== ENCOUNTER → 2019-03-20 | Outpatient (CLI) | payer OTHER ==
[~2019-03-20] MED LIST changes: +HYDR-3715 PO
--- NOTE | 2019-03-20 14:54 | REPMRS ---
Patient History The patient states she has not had a clinical breast exam in over a year. No known family history of cancer. No Hormone Replacement Therapy 3D TOMOSYNTHESIS WAS PERFORMED. [facility] lifetime risk for breast cancer is 5.6%. Digital Woman Screen Mammo: March 20, 2019 - Exam #: [id number] Bilateral CC and MLO view(s) were taken. Technologist: Mishel Vincent, Technologist Prior study comparison: August 16, 2010, bilateral digital mammo screening bilat performed at [facility]. FINDINGS: There are scattered fibroglandular densities. There has been no change in the appearance of the mammogram from the prior studies. There is a mild amount of residual fibroglandular tissue which is fairly symmetric. There is no interval development of dominant mass, architectural distortion, or clustered microcalcification suggestive of malignancy. Assessment: BI-RADS/ACR category 1 mammogram. Negative Mammogram. Recommendation Routine screening mammogram in 1 year (for women over age 40). This mammogram was interpreted with the aid of an FDA-approved computer-aided dectection system. Electronically Signed By: Earl Clemons MD 03/20/19 4439
== END ==
LOC: M WHC 13:24
PROVIDERS: ATTEND Physician Assistant Medical
DX: Z12.31 Encounter for screening mammogram for malignant neoplasm of breast (principal)

== ENCOUNTER → 2022-01-24 | Outpatient (CLI) | payer MEDICARE, OTHER ==
[~2022-01-24] MED LIST changes: +AMLO1TAB24 PO; -AMLO5TAB6 PO; -LISI-538 PO; +LISI20TA33 PO
== END ==
LOC: M WHC 09:00
PROVIDERS: ATTEND Physician Assistant
DX: Z01.89 Encounter for other specified special examinations (principal); Z12.31 Encounter for screening mammogram for malignant neoplasm of breast; M85.851 Other specified disorders of bone density and structure, right thigh; M85.852 Other specified disorders of bone density and structure, left thigh

== ENCOUNTER → 2022-03-28 | Outpatient (CLI) | payer OTHER ==
[~2022-03-28] MED LIST changes: +FOLI5INJ2 SC; +FOLTTAB9 PO; +HYDR12.55; +SOD1.479
== END ==
LOC: M LABSMTC 09:54
PROVIDERS: ATTEND Anesthesiology
DX: Z01.812 Encounter for preprocedural laboratory examination (principal); Z20.822 Contact with and (suspected) exposure to COVID-19

== ENCOUNTER 2022-04-02 07:50 | Day surgery (SDC) | payer OTHER ==
[~2022-04-02] VITALS: Ht 165.1 cm; Wt 60.2 kg
[~2022-04-02 07:50] MED LIST changes: +NS 1,000 ML IV ONE
[2022-04-02] MEDS ORDERED: LIDOCAINE 2% 100MG/5ML SDV (FOR ANES.) As Ordered ONE (09:30)
[2022-04-02] MEDS ORDERED: propofoL 200 MG/20 ML VIAL As Ordered ONE (09:30)
[2022-04-02 10:00] VITALS: BP 139/65
== END 2022-04-02 10:07 | disposition home or self-care (01) ==
LOC: M OPP 07:50
PROVIDERS: ATTEND Internal Medicine Gastroenterology
DX: Z12.11 Encounter for screening for malignant neoplasm of colon (principal); Z86.010 Personal history of colon polyps; K57.30 Diverticulosis of large intestine without perforation or abscess without bleeding; K64.0 First degree hemorrhoids; I10 Essential (primary) hypertension; E78.00 Pure hypercholesterolemia, unspecified; J45.909 Unspecified asthma, uncomplicated; Z90.2 Acquired absence of lung [part of]; Z79.02 Long term (current) use of antithrombotics/antiplatelets; Z79.899 Other long term (current) drug therapy; Z88.8 Allergy status to other drugs, medicaments and biological substances; F17.200 Nicotine dependence, unspecified, uncomplicated

== ENCOUNTER → 2023-01-10 | Outpatient (CLI) | payer MEDICARE, OTHER ==
[~2023-01-10] MED LIST changes: -NS 1,000 ML IV ONE
== END ==
LOC: M WHC 13:59
PROVIDERS: ATTEND Physician Assistant
DX: Z12.31 Encounter for screening mammogram for malignant neoplasm of breast (principal)

== ENCOUNTER 2024-11-01 07:37 | Inpatient (IN) | payer MEDICARE, OTHER ==
[~2024-11-01] VITALS: Ht 167.6 cm; Wt 73.8 kg
[~2024-11-01 07:37] MED LIST changes: -HYDR12.55; +HYDR12.55 PO
[2024-11-01 09:12] LABS: BASO % 0.2 % (0.0-1.0); EOS % 0.1 % (0.0-3.0); HEMATOCRIT 37.1 % (36.0-47.0); HEMOGLOBIN 13.1 g/dl (12.0-15.5); LYMPH # 1.1 10^3/uL (1.5-5.0); LYMPH % 9.6 % (24.0-44.0); MEAN CORPUSCULAR HGB CONC 35.3 g/dl (32.0-36.5); MEAN CORPUSCULAR VOLUME 93.5 fl (80.0-96.0); MONO # 0.4 10^3/uL (0.0-0.8); MONO % 3.4 % (2.0-8.0); NEUTROPHILS # 9.7 10^3/uL (1.5-8.5); NEUTROPHILS % 86.4 % (36.0-66.0); PLATELET COUNT, AUTOMATED 406 10^3/uL (150-450); RED BLOOD COUNT 3.97 10^6/uL (4.00-5.40); WHITE BLOOD COUNT 11.2 10^3/uL (4.0-10.0)
[2024-11-01] MEDS: NS 500 ML IV ONE (09:21)
[2024-11-01] MEDS: KETOROLAC 30 MG/ML 1ML VIAL IV ONE (09:21)
[2024-11-01 09:35] LABS: ALBUMIN 2.5 G/DL (3.2-5.2); BILIRUBIN,DIRECT 0.2 MG/DL (<0.4); BILIRUBIN,TOTAL 0.6 MG/DL (0.3-1.2); TOTAL PROTEIN 5.8 G/DL (5.7-8.2)
[2024-11-01] MEDS ORDERED: ISOVUE-370 76% 100ML VIAL As Ordered ONE (10:04)
[2024-11-01] MEDS: NS (Normal Saline) 0.9% 1,000 ML IV ONE ×2 (10:44→15:26)
[2024-11-01 11:47] LABS: CALCIUM LEVEL 8.5 MG/DL (8.3-10.6); CREATININE FOR GFR 1.24 MG/DL (0.55-1.30); GLOMERULAR FILTRATION RATE 45.8 (>45); POTASSIUM SERUM 2.8 MMOL/L (3.5-5.1)
[2024-11-01] MEDS: MORPHINE 4 MG/ML 1ML VIAL IV ONE (12:06)
[2024-11-01] MEDS: KCL 10MEQ/100ML SWI (KRUN) 10 MEQ in IV 1 EA IV ONE ×2 (12:16→22:30)
[2024-11-01] MEDS: PIPERACILLIN/TAZOBACTAM SOD 3.375 GM in DEXTROSE 5% (D5W) ADV/MINI-BAG 50 ML IV ONE (12:21)
[2024-11-01 12:25] LABS: MAGNESIUM LEVEL 1.6 MG/DL (1.8-2.4)
[2024-11-01] MEDS: POTASSIUM CHLORIDE 10MEQ SR TABLET PO ONE (13:30)
[2024-11-01] MEDS: MORPHINE 2 MG/ML 1ML VIAL IV PRN (14:27)
[2024-11-01] MEDS ORDERED: AMLO1TAB25 PO (15:03)
[2024-11-01] MEDS ORDERED: ERGO500029 PO (15:07)
[2024-11-01] MEDS ORDERED: FOLI1TAB11 PO (15:07)
[2024-11-01] MEDS ORDERED: MECL-86 PO (15:07)
[2024-11-01] MEDS ORDERED: B-12100020 PO (15:07)
[2024-11-01] MEDS ORDERED: HOME MED LIST COMPLETE! XX SCH (15:10)
[2024-11-01] MEDS: MAG SULF 1GM/100ML (MAG RUN) 1 GM in IV 1 EA IV SCH (16:36)
[2024-11-01] MEDS ORDERED: PIPERACILLIN/TAZOBACTAM SOD 3.375 GM in DEXTROSE 5% (D5W) ADV/MINI-BAG 50 ML IV SCH (18:00)
[2024-11-01] MEDS ORDERED: VANCOMYCIN HCL 1,000 MG, VIAL MATE ADAPTER 1 EACH in NS 250 ML IV SCH (19:50)
[2024-11-01] MEDS: VANCOMYCIN HCL 1,250 MG, VIAL MATE ADAPTER 1 EACH in NS 250 ML IV ONE (20:12)
[2024-11-01] MEDS: LR 1,000 ML IV ONE (20:15)
[2024-11-01] MEDS: METOPROLOL TARTRATE 100MG TAB PO SCH (20:16)
[2024-11-01 21:32] LABS: BASO % 0.2 % (0.0-1.0); EOS % 0.1 % (0.0-3.0); HEMATOCRIT 30.9 % (36.0-47.0); LYMPH # 1.4 10^3/uL (1.5-5.0); LYMPH % 8.9 % (24.0-44.0); MEAN CORPUSCULAR HEMOGLOBIN 32.7 pg (27.0-33.0); MEAN CORPUSCULAR VOLUME 96.3 fl (80.0-96.0); MONO # 0.3 10^3/uL (0.0-0.8); MONO % 1.7 % (2.0-8.0); NEUTROPHILS # 13.9 10^3/uL (1.5-8.5); NEUTROPHILS % 88.7 % (36.0-66.0); PLATELET COUNT, AUTOMATED 322 10^3/uL (150-450); RED BLOOD COUNT 3.21 10^6/uL (4.00-5.40); WHITE BLOOD COUNT 15.7 10^3/uL (4.0-10.0)
[2024-11-01 21:37] LABS: HEMOGLOBIN 10.5 g/dl (12.0-15.5)
[2024-11-01 21:55] LABS: CALCIUM LEVEL 7.3 MG/DL (8.3-10.6); CREATININE FOR GFR 1.14 MG/DL (0.55-1.30); GLOMERULAR FILTRATION RATE 50.5 (>45); MAGNESIUM LEVEL 2.3 MG/DL (1.8-2.4)
[2024-11-01] MEDS: PIPERACILLIN/TAZOBACTAM SOD 4.5 GM in DEXTROSE 5% (D5W) ADV/MINI-BAG 50 ML IV SCH (23:30)
[2024-11-01] MEDS: POTASSIUM CHLORIDE 10MEQ SR TABLET PO SCH (23:31)
[2024-11-01] MEDS: PERCOCET 5MG/325MG TAB PO PRN (23:41)
[2024-11-02] MEDS: RAMELTEON 8 MG TAB (ROZEREM) PO PRN (01:23)
[2024-11-02] MEDS: MORPHINE 2 MG/ML 1ML VIAL IV PRN (01:28)
[2024-11-02] MEDS: KCL 20MEQ in NS 1000ML 1,000 ML IV SCH (01:58)
[2024-11-02 02:33] LABS: CALCIUM LEVEL 7.2 MG/DL (8.3-10.6); CREATININE FOR GFR 1.09 MG/DL (0.55-1.30); GLOMERULAR FILTRATION RATE 53.1 (>45); POTASSIUM SERUM 3.5 MMOL/L (3.5-5.1)
[2024-11-02 08:44] LABS: HEMATOCRIT 29.9 % (36.0-47.0); MEAN CORPUSCULAR HEMOGLOBIN 32.8 pg (27.0-33.0); MEAN CORPUSCULAR HGB CONC 33.4 g/dl (32.0-36.5); PLATELET COUNT, AUTOMATED 293 10^3/uL (150-450); RED BLOOD COUNT 3.05 10^6/uL (4.00-5.40); WHITE BLOOD COUNT 13.6 10^3/uL (4.0-10.0)
[2024-11-02] MEDS: VANCOMYCIN HCL 750 MG, VIAL MATE ADAPTER 1 EACH in NS 250 ML IV SCH (08:55)
[2024-11-02] MEDS: ENOXAPARIN 40MG/0.4ML SYRINGE (J1650 PER 10MG) SC SCH (09:00)
[2024-11-02 09:16] LABS: CALCIUM LEVEL 7.4 MG/DL (8.3-10.6); CREATININE FOR GFR 1.12 MG/DL (0.55-1.30); GLOMERULAR FILTRATION RATE 51.5 (>45); POTASSIUM SERUM 4.1 MMOL/L (3.5-5.1)
[2024-11-02 10:50] LABS: ALBUMIN 1.9 G/DL (3.2-5.2); TOTAL PROTEIN 4.7 G/DL (5.7-8.2)
[2024-11-02] MEDS: NS (Normal Saline) 0.9% 1,000 ML IV SCH (11:46)
[2024-11-02 13:00] VITALS: BP 132/76; TEMP 97.5; O2SAT 96
[2024-11-02 14:24] LABS: CALCIUM LEVEL 7.6 MG/DL (8.3-10.6); CREATININE FOR GFR 1.07 MG/DL (0.55-1.30); GLOMERULAR FILTRATION RATE 54.3 (>45); POTASSIUM SERUM 4.4 MMOL/L (3.5-5.1)
[2024-11-02 16:00] VITALS: BP 131/69; TEMP 97.9; O2SAT 96
[2024-11-02] MEDS ORDERED: MECLIZINE 25 MG TABLET PO PRN (16:30)
[2024-11-02] MEDS: METOPROLOL TART 25 MG TABLET PO SCH (21:11)
[2024-11-02 22:27] VITALS: BP 130/80; TEMP 97.5; O2SAT 95
[2024-11-03 01:00] VITALS: BP 107/74; TEMP 97.5; O2SAT 100
[2024-11-03 04:54] VITALS: BP 115/68; TEMP 97.6; O2SAT 94
[2024-11-03 06:01] LABS: HEMATOCRIT 29.6 % (36.0-47.0); HEMOGLOBIN 9.9 g/dl (12.0-15.5); MEAN CORPUSCULAR HEMOGLOBIN 32.9 pg (27.0-33.0); MEAN CORPUSCULAR HGB CONC 33.4 g/dl (32.0-36.5); MEAN CORPUSCULAR VOLUME 98.3 fl (80.0-96.0); PLATELET COUNT, AUTOMATED 271 10^3/uL (150-450); RED BLOOD COUNT 3.01 10^6/uL (4.00-5.40); WHITE BLOOD COUNT 12.1 10^3/uL (4.0-10.0)
[2024-11-03 06:20] LABS: CALCIUM LEVEL 7.8 MG/DL (8.3-10.6); CREATININE FOR GFR 1.34 MG/DL (0.55-1.30); GLOMERULAR FILTRATION RATE 41.9 (>45); POTASSIUM SERUM 3.5 MMOL/L (3.5-5.1)
[2024-11-03 07:20] LABS: LYMPHOCYTES 12 % (16-44); NEUTROPHILS 88 % (28-66)
[2024-11-03 07:21] LABS: PLATELET ESTIMATE NORMAL (NORMAL)
[2024-11-03 08:39] VITALS: BP 114/76; TEMP 97.5; O2SAT 94
[2024-11-03] MEDS: FOLIC ACID 1MG TAB PO SCH (09:57)
[2024-11-03 12:21] LABS: PROCALCITONIN 6.95 ng/ml
[2024-11-03 12:48] VITALS: BP 115/70; TEMP 97; O2SAT 95
[2024-11-03 13:03] LABS: CALCIUM LEVEL 7.9 MG/DL (8.3-10.6); CREATININE FOR GFR 1.36 MG/DL (0.55-1.30); GLOMERULAR FILTRATION RATE 41.2 (>45); POTASSIUM SERUM 3.6 MMOL/L (3.5-5.1)
[2024-11-03 14:48] LABS: KETONE, URINE AUTO RFX NEGATIVE (NEGATIVE); MUCUS, URINE RFX SMALL (NEGATIVE); NITRITE, URINE AUTO RFX NEGATIVE (NEGATIVE); RBC, URINE AUTO RFX 13 /HPF (0-3); SQUAM EPITHELIAL CELL UR AURFX 5 /HPF (0-6)
[2024-11-03 14:49] LABS: LEUKOCYTE ESTERASE UR AUTO RFX 1+ (NEGATIVE); WBC, URINE AUTO RFX 19 /HPF (0-3)
[2024-11-03 17:32] VITALS: BP 115/69; TEMP 97.7; O2SAT 96
[2024-11-03] MEDS: SODIUM BICARBONATE 325 MG TAB PO SCH (18:09)
[2024-11-03] MEDS: TAZOBACTAM SOD IV SCH (18:09)
[2024-11-03] MEDS: MINI IV SCH (18:09)
[2024-11-03] MEDS: PIPERACILLIN IV SCH (18:09)
[2024-11-03] MEDS: DEXTROSE 5% IV SCH (18:09)
[2024-11-03 20:24] VITALS: BP 131/75; TEMP 97.3; O2SAT 92
[2024-11-03] MEDS: ACETAMINOPHEN 325 MG TAB PO PRN (20:30)
[2024-11-04] MEDS: ONDANSETRON 4MG 2ML VIAL IV PRN (02:51)
[2024-11-04 03:42] VITALS: BP 119/79; TEMP 97.3; O2SAT 92
[2024-11-04 08:00] VITALS: BP 124/74; TEMP 97.5; O2SAT 89
[2024-11-04 08:23] LABS: BASO % 0.1 % (0.0-1.0); EOS % 0.1 % (0.0-3.0); HEMATOCRIT 32.9 % (36.0-47.0); LYMPH # 1.2 10^3/uL (1.5-5.0); LYMPH % 7.7 % (24.0-44.0); MEAN CORPUSCULAR HEMOGLOBIN 32.7 pg (27.0-33.0); MEAN CORPUSCULAR HGB CONC 33.4 g/dl (32.0-36.5); MEAN CORPUSCULAR VOLUME 97.9 fl (80.0-96.0); MONO # 0.6 10^3/uL (0.0-0.8); MONO % 3.8 % (2.0-8.0); NEUTROPHILS # 13.7 10^3/uL (1.5-8.5); NEUTROPHILS % 87.3 % (36.0-66.0); PLATELET COUNT, AUTOMATED 334 10^3/uL (150-450); RED BLOOD COUNT 3.36 10^6/uL (4.00-5.40); WHITE BLOOD COUNT 15.7 10^3/uL (4.0-10.0)
[2024-11-04 08:59] LABS: PROCALCITONIN 10.18 ng/ml
[2024-11-04 09:01] LABS: ALBUMIN 1.9 G/DL (3.2-5.2); BILIRUBIN,TOTAL 1.3 MG/DL (0.3-1.2); CALCIUM LEVEL 8.4 MG/DL (8.3-10.6); CREATININE FOR GFR 1.43 MG/DL (0.55-1.30); GLOMERULAR FILTRATION RATE 38.8 (>45); MAGNESIUM LEVEL 1.9 MG/DL (1.8-2.4); POTASSIUM SERUM 3.2 MMOL/L (3.5-5.1); TOTAL PROTEIN 5.5 G/DL (5.7-8.2)
[2024-11-04] MEDS: KCL 20MEQ in NS 1000ML 1,000 ML IV SCH (11:37)
[2024-11-04] MEDS: KCL 10MEQ/100ML SWI (KRUN) 10 MEQ in IV 1 EA IV SCH (11:37)
[2024-11-04 12:00] VITALS: TEMP 97.5; O2SAT 93
[2024-11-04] MEDS: CHLORASEPTIC SPRAY MT PRN (16:13)
[2024-11-04] MEDS ORDERED: KCL 10MEQ/100ML SWI (KRUN) 10 MEQ in IV 1 EA IV SCH (16:30)
[2024-11-04 19:16] LABS: CALCIUM LEVEL 8.1 MG/DL (8.3-10.6); CREATININE FOR GFR 1.46 MG/DL (0.55-1.30); GLOMERULAR FILTRATION RATE 37.9 (>45); POTASSIUM SERUM 3.7 MMOL/L (3.5-5.1)
[2024-11-04 19:36] VITALS: BP 124/79; TEMP 97.7; O2SAT 92
[2024-11-04] MEDS: PIPERACILLIN/TAZOBACTAM SOD 4.5 GM in DEXTROSE 5% (D5W) ADV/MINI-BAG 50 ML IV SCH (20:06)
[2024-11-05] VITALS (14 sets, daily range): BP systolic 117–157; BP diastolic 75–94; TEMP 97–97.9; O2SAT 73–95
[2024-11-05 06:53] LABS: ALBUMIN 1.7 G/DL (3.2-5.2); BILIRUBIN,TOTAL 0.8 MG/DL (0.3-1.2); CALCIUM LEVEL 8.4 MG/DL (8.3-10.6); CREATININE FOR GFR 1.32 MG/DL (0.55-1.30); GLOMERULAR FILTRATION RATE 42.6 (>45); MAGNESIUM LEVEL 1.8 MG/DL (1.8-2.4); POTASSIUM SERUM 3.6 MMOL/L (3.5-5.1); TOTAL PROTEIN 5.2 G/DL (5.7-8.2)
[2024-11-05 08:01] LABS: BASO % 0.2 % (0.0-1.0); EOS # 0.1 10^3/uL (0.0-0.5); EOS % 0.9 % (0.0-3.0); HEMOGLOBIN 10.2 g/dl (12.0-15.5); LYMPH # 0.9 10^3/uL (1.5-5.0); LYMPH % 9.2 % (24.0-44.0); MEAN CORPUSCULAR HEMOGLOBIN 32.9 pg (27.0-33.0); MEAN CORPUSCULAR VOLUME 96.8 fl (80.0-96.0); MONO # 0.7 10^3/uL (0.0-0.8); MONO % 7.7 % (2.0-8.0); NEUTROPHILS # 7.9 10^3/uL (1.5-8.5); NEUTROPHILS % 81.4 % (36.0-66.0); PLATELET COUNT, AUTOMATED 341 10^3/uL (150-450); WHITE BLOOD COUNT 9.7 10^3/uL (4.0-10.0)
[2024-11-05] MEDS: MORPHINE 2 MG/ML 1ML VIAL IV PRN (09:17)
[2024-11-06] VITALS (14 sets, daily range): BP systolic 121–135; BP diastolic 69–91; TEMP 97.3–97.9; O2SAT 70–98
[2024-11-06 05:49] LABS: BASO % 0.2 % (0.0-1.0); EOS # 0.1 10^3/uL (0.0-0.5); EOS % 1.7 % (0.0-3.0); HEMATOCRIT 29.2 % (36.0-47.0); HEMOGLOBIN 9.4 g/dl (12.0-15.5); LYMPH # 1.1 10^3/uL (1.5-5.0); LYMPH % 13.8 % (24.0-44.0); MEAN CORPUSCULAR HEMOGLOBIN 31.8 pg (27.0-33.0); MEAN CORPUSCULAR HGB CONC 32.2 g/dl (32.0-36.5); MEAN CORPUSCULAR VOLUME 98.6 fl (80.0-96.0); MONO # 0.8 10^3/uL (0.0-0.8); NEUTROPHILS # 5.9 10^3/uL (1.5-8.5); NEUTROPHILS % 73.4 % (36.0-66.0); PLATELET COUNT, AUTOMATED 327 10^3/uL (150-450); RED BLOOD COUNT 2.96 10^6/uL (4.00-5.40); WHITE BLOOD COUNT 8.1 10^3/uL (4.0-10.0)
[2024-11-06 06:04] LABS: ALBUMIN 2.5 G/DL (3.2-5.2); BILIRUBIN,TOTAL 0.8 MG/DL (0.3-1.2); CALCIUM LEVEL 8.7 MG/DL (8.3-10.6); CREATININE FOR GFR 1.14 MG/DL (0.55-1.30); GLOMERULAR FILTRATION RATE 50.5 (>45); MAGNESIUM LEVEL 1.7 MG/DL (1.8-2.4); POTASSIUM SERUM 3.3 MMOL/L (3.5-5.1); TOTAL PROTEIN 5.5 G/DL (5.7-8.2)
[2024-11-06] MEDS: KCL 10MEQ/100ML SWI (KRUN) 10 MEQ in IV 1 EA IV SCH ×2 (08:48→18:12)
[2024-11-06] MEDS: KCL 20MEQ IN D5/0.45NS 1000ML 1,000 ML IV SCH (08:48)
[2024-11-06] MEDS: KCL 20MEQ IN D5W 1000ML 1,000 ML IV SCH (10:58)
[2024-11-06] MEDS: MAG SULF 1GM/100ML (MAG RUN) 1 GM in IV 1 EA IV ONE (12:13)
[2024-11-06 13:19] LABS: CALCIUM LEVEL 8.4 MG/DL (8.3-10.6); CREATININE FOR GFR 1.07 MG/DL (0.55-1.30); GLOMERULAR FILTRATION RATE 54.3 (>45); POTASSIUM SERUM 3.3 MMOL/L (3.5-5.1)
[2024-11-06 17:13] LABS: CALCIUM LEVEL 8.2 MG/DL (8.3-10.6); CREATININE FOR GFR 1.04 MG/DL (0.55-1.30); GLOMERULAR FILTRATION RATE 56.1 (>45); POTASSIUM SERUM 3.1 MMOL/L (3.5-5.1)
[2024-11-06] MEDS: POTASSIUM CHLORIDE INJ 30 MEQ in D5W/0.45% SODIUM CHLORIDE 1,000 ML IV SCH (21:43)
[2024-11-06] MEDS: CEPACOL LOZENGE PO PRN (22:01)
[2024-11-07] VITALS (24 sets, daily range): BP systolic 114–136; BP diastolic 68–82; TEMP 97–97.5; O2SAT 67–98
[2024-11-07 06:30] LABS: BASO % 0.3 % (0.0-1.0); EOS # 0.1 10^3/uL (0.0-0.5); EOS % 1.8 % (0.0-3.0); HEMATOCRIT 26.9 % (36.0-47.0); LYMPH # 1.4 10^3/uL (1.5-5.0); LYMPH % 17.4 % (24.0-44.0); MEAN CORPUSCULAR HEMOGLOBIN 32.6 pg (27.0-33.0); MEAN CORPUSCULAR HGB CONC 33.5 g/dl (32.0-36.5); MEAN CORPUSCULAR VOLUME 97.5 fl (80.0-96.0); MONO # 0.8 10^3/uL (0.0-0.8); MONO % 10.5 % (2.0-8.0); NEUTROPHILS # 5.5 10^3/uL (1.5-8.5); NEUTROPHILS % 68.9 % (36.0-66.0); PLATELET COUNT, AUTOMATED 356 10^3/uL (150-450); RED BLOOD COUNT 2.76 10^6/uL (4.00-5.40)
[2024-11-07 07:05] LABS: ALBUMIN 2.1 G/DL (3.2-5.2); ALKALINE PHOSPHATASE 74 U/L (35-104); ALT/SGPT 13 U/L (7.0-40); AST/SGOT 19 U/L (<34); BILIRUBIN,TOTAL 0.6 MG/DL (0.3-1.2); BLOOD UREA NITROGEN < 5 MG/DL (9-23); CALCIUM LEVEL 8.4 MG/DL (8.3-10.6); CARBON DIOXIDE LEVEL 33 MMOL/L (20-31); CHLORIDE LEVEL 105 MMOL/L (98-107); CREATININE FOR GFR 0.98 MG/DL (0.55-1.30); GLOMERULAR FILTRATION RATE > 60.0 (>45); GLUCOSE, FASTING 120 MG/DL (74-106); MAGNESIUM LEVEL 1.6 MG/DL (1.8-2.4); POTASSIUM SERUM 3.1 MMOL/L (3.5-5.1); SODIUM LEVEL 148 MMOL/L (136-145)
[2024-11-07] MEDS ORDERED: diphenhydrAMINE 50MG/ML VIAL IV PRN (08:20)
[2024-11-07] MEDS ORDERED: PROMETHAZINE 25MG/ML 1ML VIAL IV PRN (08:20)
[2024-11-07] MEDS ORDERED: HYDROMORPHONE HCL 0.5 MG/ 0.5 ML SYRINGE IV PRN (08:20)
[2024-11-07] MEDS ORDERED: NORCO, ANEXSIA 5/325MG TABLET (HYDROcodone/ACETAMINOPHEN) PO PRN (08:20)
[2024-11-07] MEDS ORDERED: ONDANSETRON 4MG 2ML VIAL IV PRN (08:20)
[2024-11-07] MEDS ORDERED: MIDAZOLAM INJ 2MG/2ML VIAL As Ordered ONE (08:26)
[2024-11-07] MEDS ORDERED: LIDOCAINE 2% 100MG/5ML SDV (FOR ANES.) As Ordered ONE (08:26)
[2024-11-07] MEDS ORDERED: ROCURONIUM BROMIDE 50MG/5ML VIAL As Ordered ONE (08:26)
[2024-11-07] MEDS ORDERED: propofoL 200 MG/20 ML VIAL As Ordered ONE (08:26)
[2024-11-07] MEDS ORDERED: fentaNYL 100 MCG/2 ML INJECTION As Ordered ONE (08:26)
[2024-11-07] MEDS: ZOSYN 4.5GM VIAL As Ordered ONE (09:00)
[2024-11-07] MEDS ORDERED: HYDROmorphone HCL 2MG/ML 1ML VIAL As Ordered ONE (09:12)
[2024-11-07] MEDS ORDERED: ACETAMINOPHEN 1000MG/100ML IV BAG As Ordered ONE (09:20)
[2024-11-07] MEDS ORDERED: ONDANSETRON 4MG 2ML VIAL As Ordered ONE (09:40)
[2024-11-07] MEDS ORDERED: SUGAMMADEX SODIUM 500 MG/5 ML VIAL (BRIDION) As Ordered ONE (09:40)
[2024-11-07] MEDS: KCL 10MEQ/100ML SWI (KRUN) 10 MEQ in IV 1 EA IV SCH (10:25)
[2024-11-07] MEDS: ATORVASTATIN 20 MG TAB PO SCH (12:29)
[2024-11-07] MEDS: POTASSIUM CHLORIDE IV SCH (12:31)
[2024-11-07] MEDS: D5W IV SCH (12:31)
[2024-11-07] MEDS: MAG SULF 1GM/100ML (MAG RUN) 1 GM in IV 1 EA IV SCH (13:59)
[2024-11-07 14:17] LABS: BLOOD UREA NITROGEN < 5 MG/DL (9-23); CALCIUM LEVEL 8.2 MG/DL (8.3-10.6); CARBON DIOXIDE LEVEL 31 MMOL/L (20-31); CHLORIDE LEVEL 106 MMOL/L (98-107); CREATININE FOR GFR 0.95 MG/DL (0.55-1.30); GLOMERULAR FILTRATION RATE > 60.0 (>45); GLUCOSE, FASTING 125 MG/DL (74-106); POTASSIUM SERUM 3.9 MMOL/L (3.5-5.1); SODIUM LEVEL 146 MMOL/L (136-145)
[2024-11-07] MEDS: D5W 1,000 ML IV SCH (14:44)
[2024-11-07] MEDS: KCL 10MEQ/100ML SWI (KRUN) 10 MEQ in IV 1 EA IV ONE (15:21)
[2024-11-07 17:53] LABS: BLOOD UREA NITROGEN < 5 MG/DL (9-23); CALCIUM LEVEL 7.1 MG/DL (8.3-10.6); CARBON DIOXIDE LEVEL 28 MMOL/L (20-31); CHLORIDE LEVEL 92 MMOL/L (98-107); CREATININE FOR GFR 0.84 MG/DL (0.55-1.30); GLOMERULAR FILTRATION RATE > 60.0 (>45); GLUCOSE, FASTING 535 MG/DL (74-106); POTASSIUM SERUM 3.6 MMOL/L (3.5-5.1); SODIUM LEVEL 143 MMOL/L (136-145)
[2024-11-07 19:57] LABS: BLOOD UREA NITROGEN < 5 MG/DL (9-23); CALCIUM LEVEL 8.3 MG/DL (8.3-10.6); CARBON DIOXIDE LEVEL 33 MMOL/L (20-31); CHLORIDE LEVEL 103 MMOL/L (98-107); CREATININE FOR GFR 0.99 MG/DL (0.55-1.30); GLOMERULAR FILTRATION RATE 59.4 (>45); GLUCOSE, FASTING 129 MG/DL (74-106); POTASSIUM SERUM 3.8 MMOL/L (3.5-5.1); SODIUM LEVEL 145 MMOL/L (136-145)
[2024-11-07] MEDS: LR 1,000 ML IV SCH (21:39)
[2024-11-08] VITALS (8 sets, daily range): BP systolic 117–126; BP diastolic 62–78; TEMP 97.2–98.1; O2SAT 86–96
[2024-11-08 08:52] LABS: HEMATOCRIT 25.5 % (36.0-47.0); HEMOGLOBIN 8.4 g/dl (12.0-15.5); MEAN CORPUSCULAR HEMOGLOBIN 32.7 pg (27.0-33.0); MEAN CORPUSCULAR HGB CONC 32.9 g/dl (32.0-36.5); MEAN CORPUSCULAR VOLUME 99.2 fl (80.0-96.0); PLATELET COUNT, AUTOMATED 422 10^3/uL (150-450); RED BLOOD COUNT 2.57 10^6/uL (4.00-5.40); WHITE BLOOD COUNT 8.9 10^3/uL (4.0-10.0)
[2024-11-08 09:20] LABS: ATYPICAL LYMPH 11 % (0-5); LYMPHOCYTES 21 % (16-44); MONOCYTES 4 % (0-5); MYELOCYTES 1 % (0-0); NEUTROPHILS 62 % (28-66)
[2024-11-08 09:21] LABS: PLATELET CLUMPS SMALL AMT; PLATELET ESTIMATE NORMAL (NORMAL)
[2024-11-08 09:22] LABS: ALBUMIN 1.9 G/DL (3.2-5.2); ALKALINE PHOSPHATASE 72 U/L (35-104); ALT/SGPT 11 U/L (7.0-40); AST/SGOT 17 U/L (<34); BILIRUBIN,TOTAL 0.4 MG/DL (0.3-1.2); BLOOD UREA NITROGEN < 5 MG/DL (9-23); CARBON DIOXIDE LEVEL 34 MMOL/L (20-31); CHLORIDE LEVEL 103 MMOL/L (98-107); CREATININE FOR GFR 1.03 MG/DL (0.55-1.30); GLOMERULAR FILTRATION RATE 56.7 (>45); GLUCOSE, FASTING 75 MG/DL (74-106); MAGNESIUM LEVEL 2.2 MG/DL (1.8-2.4); POTASSIUM SERUM 3.6 MMOL/L (3.5-5.1); SODIUM LEVEL 147 MMOL/L (136-145); TOTAL PROTEIN 4.7 G/DL (5.7-8.2)
[2024-11-08 09:24] LABS: ANISOCYTOSIS 1+
[2024-11-08 17:50] LABS: BLOOD UREA NITROGEN < 5 MG/DL (9-23); CALCIUM LEVEL 8.2 MG/DL (8.3-10.6); CARBON DIOXIDE LEVEL 37 MMOL/L (20-31); CHLORIDE LEVEL 102 MMOL/L (98-107); GLOMERULAR FILTRATION RATE 47.6 (>45); GLUCOSE, FASTING 88 MG/DL (74-106); POTASSIUM SERUM 3.4 MMOL/L (3.5-5.1); SODIUM LEVEL 149 MMOL/L (136-145)
[2024-11-08] MEDS: KCL 20MEQ IN D5W 1000ML 1,000 ML IV SCH (21:04)
[2024-11-09 04:09] VITALS: BP 118/62; TEMP 97.3; O2SAT 90
[2024-11-09 05:30] LABS: BASO % 0.3 % (0.0-1.0); EOS # 0.3 10^3/uL (0.0-0.5); EOS % 2.3 % (0.0-3.0); HEMATOCRIT 28.5 % (36.0-47.0); HEMOGLOBIN 9.3 g/dl (12.0-15.5); LYMPH # 2.8 10^3/uL (1.5-5.0); LYMPH % 23.7 % (24.0-44.0); MEAN CORPUSCULAR HEMOGLOBIN 32.2 pg (27.0-33.0); MEAN CORPUSCULAR HGB CONC 32.6 g/dl (32.0-36.5); MEAN CORPUSCULAR VOLUME 98.6 fl (80.0-96.0); MONO # 0.7 10^3/uL (0.0-0.8); MONO % 6.4 % (2.0-8.0); NEUTROPHILS # 7.6 10^3/uL (1.5-8.5); NEUTROPHILS % 65.6 % (36.0-66.0); RED BLOOD COUNT 2.89 10^6/uL (4.00-5.40); WHITE BLOOD COUNT 11.6 10^3/uL (4.0-10.0)
[2024-11-09 05:35] LABS: PLATELET COUNT, AUTOMATED 561 10^3/uL (150-450)
[2024-11-09 06:11] LABS: ALKALINE PHOSPHATASE 88 U/L (35-104); ALT/SGPT 13 U/L (7.0-40); AST/SGOT 20 U/L (<34); BILIRUBIN,TOTAL 0.4 MG/DL (0.3-1.2); BLOOD UREA NITROGEN < 5 MG/DL (9-23); CALCIUM LEVEL 8.2 MG/DL (8.3-10.6); CARBON DIOXIDE LEVEL 36 MMOL/L (20-31); CHLORIDE LEVEL 99 MMOL/L (98-107); CREATININE FOR GFR 1.22 MG/DL (0.55-1.30); GLOMERULAR FILTRATION RATE 46.7 (>45); GLUCOSE, FASTING 94 MG/DL (74-106); MAGNESIUM LEVEL 1.9 MG/DL (1.8-2.4); POTASSIUM SERUM 3.2 MMOL/L (3.5-5.1); SODIUM LEVEL 145 MMOL/L (136-145); TOTAL PROTEIN 5.1 G/DL (5.7-8.2)
[2024-11-09] MEDS: KCL 10MEQ/100ML SWI (KRUN) 10 MEQ in IV 1 EA IV SCH (08:17)
[2024-11-09] MEDS ORDERED: SODIUM CHLORIDE 0.9% INJ 10 ML SYR IV PRN (11:20)
[2024-11-09] MEDS: MAGNESIUM CITRATE 300ML BTL PO ONE (11:47)
[2024-11-09 12:00] VITALS: BP 117/69; TEMP 97.3; O2SAT 91
[2024-11-09] MEDS: SODIUM CHLORIDE 0.9% INJ 10 ML SYR IV SCH (12:00)
[2024-11-09 17:52] LABS: CALCIUM LEVEL 8.1 MG/DL (8.3-10.6); CREATININE FOR GFR 1.25 MG/DL (0.55-1.30); GLOMERULAR FILTRATION RATE 45.4 (>45); POTASSIUM SERUM 3.2 MMOL/L (3.5-5.1)
[2024-11-09] MEDS ORDERED: KCL 10MEQ/100ML SWI (KRUN) 10 MEQ in IV 1 EA IV SCH (18:05)
[2024-11-09 20:17] VITALS: BP 118/56; TEMP 97.5; O2SAT 95
[2024-11-09] MEDS: KCL 20MEQ IN D5/0.45NS 1000ML 1,000 ML IV SCH (20:23)
[2024-11-09 21:53] LABS: CALCIUM LEVEL 7.9 MG/DL (8.3-10.6); CREATININE FOR GFR 1.2 MG/DL (0.55-1.30); GLOMERULAR FILTRATION RATE 47.6 (>45); POTASSIUM SERUM 3.3 MMOL/L (3.5-5.1)
[2024-11-10 04:58] VITALS: BP 138/72; TEMP 97.5; O2SAT 89
[2024-11-10 06:13] LABS: BASO % 0.3 % (0.0-1.0); EOS # 0.2 10^3/uL (0.0-0.5); EOS % 1.8 % (0.0-3.0); HEMOGLOBIN 8.7 g/dl (12.0-15.5); LYMPH # 2.2 10^3/uL (1.5-5.0); LYMPH % 18.6 % (24.0-44.0); MEAN CORPUSCULAR HGB CONC 33.5 g/dl (32.0-36.5); MEAN CORPUSCULAR VOLUME 95.6 fl (80.0-96.0); MONO # 0.8 10^3/uL (0.0-0.8); MONO % 6.3 % (2.0-8.0); NEUTROPHILS # 8.5 10^3/uL (1.5-8.5); NEUTROPHILS % 71.1 % (36.0-66.0); PLATELET COUNT, AUTOMATED 559 10^3/uL (150-450); RED BLOOD COUNT 2.72 10^6/uL (4.00-5.40)
[2024-11-10 06:43] LABS: ALBUMIN 1.8 G/DL (3.2-5.2); ALKALINE PHOSPHATASE 95 U/L (35-104); ALT/SGPT 12 U/L (7.0-40); AST/SGOT 22 U/L (<34); BILIRUBIN,TOTAL 0.4 MG/DL (0.3-1.2); BLOOD UREA NITROGEN < 5 MG/DL (9-23); CARBON DIOXIDE LEVEL 36 MMOL/L (20-31); CHLORIDE LEVEL 99 MMOL/L (98-107); CREATININE FOR GFR 1.23 MG/DL (0.55-1.30); GLOMERULAR FILTRATION RATE 46.2 (>45); GLUCOSE, FASTING 94 MG/DL (74-106); MAGNESIUM LEVEL 1.8 MG/DL (1.8-2.4); POTASSIUM SERUM 3.2 MMOL/L (3.5-5.1); SODIUM LEVEL 144 MMOL/L (136-145)
[2024-11-10 07:51] VITALS: BP 125/75; TEMP 97.3; O2SAT 94
[2024-11-10 08:01] LABS: C REACTIVE PROTEIN QUANTITATIV 10.09 MG/DL (<1.0)
[2024-11-10 08:09] LABS: PROCALCITONIN 26.35 ng/ml
[2024-11-10] MEDS: KCL 10MEQ/100ML SWI (KRUN) 10 MEQ in IV 1 EA IV SCH (08:14)
[2024-11-10] MEDS ORDERED: CHLORASEPTIC SPRAY MT PRN (10:50)
[2024-11-10 12:00] VITALS: BP 129/86; TEMP 97.9; O2SAT 96
[2024-11-10] MEDS: METOPROLOL TART 25 MG TABLET PO SCH (15:34)
[2024-11-10 19:30] VITALS: BP 108/72; TEMP 97.5; O2SAT 96
[2024-11-11 05:40] VITALS: BP 110/60; TEMP 98.2; O2SAT 98
[2024-11-11 06:09] LABS: BASO % 0.3 % (0.0-1.0); EOS # 0.3 10^3/uL (0.0-0.5); EOS % 2.5 % (0.0-3.0); HEMATOCRIT 24.3 % (36.0-47.0); HEMOGLOBIN 8.3 g/dl (12.0-15.5); LYMPH # 2.1 10^3/uL (1.5-5.0); LYMPH % 17.5 % (24.0-44.0); MEAN CORPUSCULAR HEMOGLOBIN 32.8 pg (27.0-33.0); MEAN CORPUSCULAR HGB CONC 34.2 g/dl (32.0-36.5); MONO # 0.9 10^3/uL (0.0-0.8); MONO % 7.3 % (2.0-8.0); NEUTROPHILS # 8.3 10^3/uL (1.5-8.5); NEUTROPHILS % 69.9 % (36.0-66.0); PLATELET COUNT, AUTOMATED 549 10^3/uL (150-450); RED BLOOD COUNT 2.53 10^6/uL (4.00-5.40); WHITE BLOOD COUNT 11.9 10^3/uL (4.0-10.0)
[2024-11-11 06:24] LABS: C REACTIVE PROTEIN QUANTITATIV 7.87 MG/DL (<1.0)
[2024-11-11 06:35] LABS: ALBUMIN 1.7 G/DL (3.2-5.2); ALKALINE PHOSPHATASE 89 U/L (35-104); ALT/SGPT 10 U/L (7.0-40); AST/SGOT 19 U/L (<34); BILIRUBIN,TOTAL 0.3 MG/DL (0.3-1.2); BLOOD UREA NITROGEN < 5 MG/DL (9-23); CALCIUM LEVEL 7.5 MG/DL (8.3-10.6); CARBON DIOXIDE LEVEL 30 MMOL/L (20-31); CHLORIDE LEVEL 103 MMOL/L (98-107); CREATININE FOR GFR 1.26 MG/DL (0.55-1.30); GLUCOSE, FASTING 88 MG/DL (74-106); MAGNESIUM LEVEL 1.7 MG/DL (1.8-2.4); POTASSIUM SERUM 3.2 MMOL/L (3.5-5.1); SODIUM LEVEL 141 MMOL/L (136-145); TOTAL PROTEIN 4.7 G/DL (5.7-8.2)
[2024-11-11] MEDS: MAG SULF 1GM/100ML (MAG RUN) 1 GM in IV 1 EA IV SCH (09:46)
[2024-11-11] MEDS: POTASSIUM CHLORIDE 10MEQ SR TABLET PO ONE ×2 (09:46→21:18)
[2024-11-11] MEDS: LACTOBACILLUS ACIDOPHILUS CAP (BACID) PO SCH (11:35)
[2024-11-11 12:00] VITALS: BP 116/58; TEMP 97.3; O2SAT 98
[2024-11-11 20:20] VITALS: BP 122/72; TEMP 97.5; O2SAT 98
[2024-11-11] MEDS: ANALGESIC BALM CRM 3OZ TOP PRN (21:59)
[2024-11-12 03:10] VITALS: BP 130/76; TEMP 97.3; O2SAT 93
[2024-11-12 06:09] LABS: BASO # 0.1 10^3/uL (0.0-0.2); BASO % 0.5 % (0.0-1.0); EOS # 0.3 10^3/uL (0.0-0.5); EOS % 2.2 % (0.0-3.0); HEMATOCRIT 26.8 % (36.0-47.0); HEMOGLOBIN 8.9 g/dl (12.0-15.5); LYMPH # 2.2 10^3/uL (1.5-5.0); LYMPH % 16.8 % (24.0-44.0); MEAN CORPUSCULAR HGB CONC 33.2 g/dl (32.0-36.5); MEAN CORPUSCULAR VOLUME 96.4 fl (80.0-96.0); MONO # 1.1 10^3/uL (0.0-0.8); MONO % 8.3 % (2.0-8.0); NEUTROPHILS # 9.2 10^3/uL (1.5-8.5); NEUTROPHILS % 68.5 % (36.0-66.0); PLATELET COUNT, AUTOMATED 703 10^3/uL (150-450); RED BLOOD COUNT 2.78 10^6/uL (4.00-5.40); WHITE BLOOD COUNT 13.4 10^3/uL (4.0-10.0)
[2024-11-12 06:34] LABS: C REACTIVE PROTEIN QUANTITATIV 5.35 MG/DL (<1.0)
[2024-11-12 06:55] LABS: CREATININE FOR GFR 1.34 MG/DL (0.55-1.30); GLOMERULAR FILTRATION RATE 41.9 (>45); MAGNESIUM LEVEL 2.1 MG/DL (1.8-2.4); POTASSIUM SERUM 4.3 MMOL/L (3.5-5.1)
[2024-11-12] MEDS: NS (Normal Saline) 0.9% 1,000 ML IV SCH (11:43)
[2024-11-12 12:13] VITALS: BP 132/76; TEMP 97.5; O2SAT 95
[2024-11-12] MEDS: PIPERACILLIN/TAZOBACTAM SOD 3.375 GM in DEXTROSE 5% (D5W) ADV/MINI-BAG 50 ML IV SCH (14:14)
[2024-11-12] MEDS ORDERED: PIPERACILLIN/TAZOBACTAM SOD 3.375 GM in DEXTROSE 5% (D5W) ADV/MINI-BAG 50 ML IV SCH (15:00)
[2024-11-12 16:34] LABS: CLOSTRIDIUM DIFFICILE PCR NEGATIVE (NEGATIVE)
[2024-11-12 20:00] VITALS: BP 120/72; TEMP 97.5; O2SAT 95
[2024-11-13 03:40] VITALS: BP 138/76; TEMP 97.5; O2SAT 97
[2024-11-13 06:05] LABS: BASO # 0.1 10^3/uL (0.0-0.2); BASO % 0.5 % (0.0-1.0); EOS # 0.3 10^3/uL (0.0-0.5); EOS % 2.7 % (0.0-3.0); HEMATOCRIT 24.8 % (36.0-47.0); HEMOGLOBIN 8.1 g/dl (12.0-15.5); LYMPH # 1.5 10^3/uL (1.5-5.0); LYMPH % 12.5 % (24.0-44.0); MEAN CORPUSCULAR HEMOGLOBIN 32.1 pg (27.0-33.0); MEAN CORPUSCULAR HGB CONC 32.7 g/dl (32.0-36.5); MEAN CORPUSCULAR VOLUME 98.4 fl (80.0-96.0); MONO % 7.8 % (2.0-8.0); NEUTROPHILS % 73.6 % (36.0-66.0); PLATELET COUNT, AUTOMATED 617 10^3/uL (150-450); RED BLOOD COUNT 2.52 10^6/uL (4.00-5.40); WHITE BLOOD COUNT 12.3 10^3/uL (4.0-10.0)
[2024-11-13 06:28] LABS: C REACTIVE PROTEIN QUANTITATIV 3.12 MG/DL (<1.0)
[2024-11-13 06:32] LABS: BLOOD UREA NITROGEN < 5 MG/DL (9-23); CALCIUM LEVEL 7.6 MG/DL (8.3-10.6); CARBON DIOXIDE LEVEL 20 MMOL/L (20-31); CHLORIDE LEVEL 111 MMOL/L (98-107); CREATININE FOR GFR 1.23 MG/DL (0.55-1.30); GLOMERULAR FILTRATION RATE 46.2 (>45); GLUCOSE, FASTING 76 MG/DL (74-106); POTASSIUM SERUM 3.9 MMOL/L (3.5-5.1); SODIUM LEVEL 143 MMOL/L (136-145)
[2024-11-13 08:00] VITALS: BP 112/56; TEMP 97.3; O2SAT 98
[2024-11-13 08:29] VITALS: BP 112/56
[2024-11-13 12:00] VITALS: BP 104/52; TEMP 97.5; O2SAT 98
[2024-11-13] MEDS ORDERED: METR-265 PO (12:16)
[2024-11-13] MEDS ORDERED: LOPE-26 PO (12:16)
[2024-11-13] MEDS ORDERED: CIPR500T39 PO (12:16)
[2024-11-13] MEDS ORDERED: LOPR1TAB6 PO (12:16)
[2024-11-13] MEDS ORDERED: PROB250C PO (12:16)
[2024-11-13] MEDS ORDERED: POTA-151 PO (12:17)
== END 2024-11-13 13:43 | disposition home health service (06) | DRG 854 ==
LOC: M ED 07:37 → EDBD 07:37 → M ED INP 14:44 → EEVIPCON 14:44 → M MSPAV 11-02 12:37
PROVIDERS: ADMIT Internal Medicine; ATTEND Internal Medicine
PROC: 30233J1 Transfusion of Nonautologous Serum Albumin into Peripheral Vein, Percutaneous Approach (ICD-10-PCS; 2024-11-05)
PROC: 0DN84ZZ Release Small Intestine, Percutaneous Endoscopic Approach (ICD-10-PCS; principal; 2024-11-07 08:30)
DX: A41.9 Sepsis, unspecified organism (principal); N17.9 Acute kidney failure, unspecified; K56.50 Intestinal adhesions [bands], unspecified as to partial versus complete obstruction; E87.0 Hyperosmolality and hypernatremia; E87.20 Acidosis, unspecified; K56.7 Ileus, unspecified; K57.20 Diverticulitis of large intestine with perforation and abscess without bleeding; J98.11 Atelectasis; E83.42 Hypomagnesemia; E88.09 Other disorders of plasma-protein metabolism, not elsewhere classified; K76.0 Fatty (change of) liver, not elsewhere classified; E87.6 Hypokalemia; R74.01 Elevation of levels of liver transaminase levels; I10 Essential (primary) hypertension; E78.5 Hyperlipidemia, unspecified; Z79.899 Other long term (current) drug therapy; Z88.8 Allergy status to other drugs, medicaments and biological substances